=== PATIENT | male | born 1945 | race Caucasian/White ===

== ENCOUNTER 2016-08-28 13:34 | Inpatient (IN) | payer SELFPAY ==
[~2016-08-28] VITALS: Ht 180.3 cm; Wt 74.8 kg
[2016-08-28] MEDS ORDERED: ASPIRIN 81 MG TABLET CHEW ONE (14:20)
[2016-08-28] MEDS ORDERED: ASPIRIN 81 MG TABLET CHEW PO ONE (14:30)
[2016-08-28] MEDS ORDERED: PLEASE ENTER ALLERGIES MC SCH ×2 (14:30)
[2016-08-28] MEDS ORDERED: SODIUM CHLORIDE FLUSH 10ML SYR IVF ONE (14:30)
[2016-08-28 14:45] LABS: ASPARTATE AMINO TRANSFERASE 29 U/L (15-37); BLOOD UREA NITROGEN 33 mg/dL (7-18)
[2016-08-28 14:51] LABS: IS PT STATUS REG ER OR PRE ER? YES
[2016-08-28 15:26] LABS: PATH.CAST-FLAG NOT PRESENT; SPERM-FLAG NOT PRESENT; SRC-FLAG NOT PRESENT; XTAL-FLAG NOT PRESENT; YLC-FLAG NOT PRESENT
[2016-08-28] MEDS ORDERED: SODIUM CHLORIDE 0.9% 1,000 ML IV SCH ×4 (15:30→17:01)
[2016-08-28] MEDS ORDERED: LISI2.5T PO (16:34)
[2016-08-28] MEDS ORDERED: HYDR12.53 PO (16:34)
[2016-08-28 17:20] LABS: BLOOD UREA NITROGEN 34 mg/dL (7-18)
[2016-08-28] MEDS ORDERED: DOCUSATE 100 MG CAPSULE PO PRN (17:30)
[2016-08-28] MEDS ORDERED: ONDANSETRON 2MG/ML, 2ML IVPush PRN (17:30)
[2016-08-28] MEDS ORDERED: BISACODYL 10 MG SUPP PR PRN (17:30)
[2016-08-28] MEDS ORDERED: POLYETHYLENE GLYCOL 17 GM PACKET PO PRN (17:30)
[2016-08-28] MEDS ORDERED: ACETAMINOPHEN 325 MG TABLET PO PRN (17:30)
[2016-08-28 17:48] VITALS: BP 107/71
[2016-08-28] MEDS ORDERED: POTASSIUM CHLORIDE 20 MEQ TAB.ER.PRT PO ONE ×2 (18:00→21:30)
[2016-08-28 18:02] VITALS: BP 107/71
[2016-08-28 20:00] VITALS: BP_SYST 69; BP_SYST 72; BP_DIAS 44; BP_DIAS 48
[2016-08-28 20:26] LABS: POTASSIUM,URINE RANDOM 15 mmol/L
[2016-08-28] MEDS ORDERED: SODIUM CHLORIDE 0.9% 500 ML IV ONE (21:00)
[2016-08-28] MEDS ORDERED: HEPARIN 5,000 UNITS/ML, 1ML IV ONE (21:00)
[2016-08-28 21:10] LABS: BLOOD UREA NITROGEN 39 mg/dL (7-18)
[2016-08-28] MEDS ORDERED: POTASSIUM CHLORIDE 20 MEQ in SODIUM CHLORIDE 0.9% 250 ML IV ONE (22:00)
[2016-08-28] MEDS: HEPARIN 25,000 UNITS/500ML PMX 500 ML IV PRN (23:40)
[2016-08-29] VITALS (8 sets, daily range): BP systolic 69–120; BP diastolic 40–73
[2016-08-29] MEDS: SODIUM CHLORIDE 0.9% 1,000 ML IV SCH ×2 (03:24→12:06)
[2016-08-29 06:24] LABS: BLOOD UREA NITROGEN 36 mg/dL (7-18)
[2016-08-29] MEDS ORDERED: POTASSIUM CHLORIDE 20 MEQ TAB.ER.PRT PO ONE (07:00)
[2016-08-29] MEDS ORDERED: MAGNESIUM SULFATE PMX 2GM/50ML 50 ML IV ONE (07:00)
[2016-08-29] MEDS: HEPARIN 5,000 UNITS/ML, 1ML IV PRN ×2 (08:07→22:17)
[2016-08-29 14:32] LABS: BLOOD UREA NITROGEN 29 mg/dL (7-18)
[2016-08-29] MEDS: POTASSIUM CHLORIDE 20 MEQ in SODIUM CHLORIDE 0.9% 1,000 ML IV SCH (17:51)
[2016-08-29 21:53] LABS: BLOOD UREA NITROGEN 24 mg/dL (7-18)
[2016-08-29] MEDS: HEPARIN 25,000 UNITS/500ML PMX 500 ML IV PRN (22:18)
[2016-08-30] MEDS: POTASSIUM CHLORIDE 20 MEQ in SODIUM CHLORIDE 0.9% 1,000 ML IV SCH ×3 (01:04→18:05)
[2016-08-30 01:26] VITALS: BP 129/78
[2016-08-30 05:48] LABS: BLOOD UREA NITROGEN 19 mg/dL (7-18)
[2016-08-30 07:59] VITALS: BP 127/79
[2016-08-30 08:02] VITALS: BP 129/83
[2016-08-30] MEDS ORDERED: OMNIPAQUE 350 MG/ML, 100ML BOTTLE ONE (10:06)
[2016-08-30 13:18] VITALS: BP 111/60
[2016-08-30 13:28] LABS: BLOOD UREA NITROGEN 15 mg/dL (7-18)
[2016-08-30] MEDS ORDERED: ENOXAPARIN 40 MG/0.4 ML SQ SCH (17:00)
[2016-08-30 19:13] VITALS: BP 138/83
[2016-08-31] MEDS: POTASSIUM CHLORIDE 20 MEQ in SODIUM CHLORIDE 0.9% 1,000 ML IV SCH ×2 (00:42→06:47)
[2016-08-31 01:11] VITALS: BP 153/83
[2016-08-31 06:54] VITALS: BP 141/87
[2016-08-31] MEDS ORDERED: SODIUM CHLORIDE 0.9% 1,000 ML IV SCH (13:00)
[2016-08-31] MEDS ORDERED: LISI-170 PO (13:20)
== END 2016-08-31 14:45 | disposition home or self-care (01) | DRG 640 ==
LOC: ED 14:17 → EDIP 15:51 → 4WST 17:45 → DCLOUNGE 08-31 14:05
DX: E86.1 Hypovolemia (principal); N17.0 Acute kidney failure with tubular necrosis; G90.8 Other disorders of autonomic nervous system; E87.1 Hypo-osmolality and hyponatremia; E87.3 Alkalosis; I11.9 Hypertensive heart disease without heart failure; F10.20 Alcohol dependence, uncomplicated; E87.8 Other disorders of electrolyte and fluid balance, not elsewhere classified; T50.2X5A Adverse effect of carbonic-anhydrase inhibitors, benzothiadiazides and other diuretics, initial encounter; Z80.8 Family history of malignant neoplasm of other organs or systems; Z83.3 Family history of diabetes mellitus; Z87.891 Personal history of nicotine dependence; J44.9 Chronic obstructive pulmonary disease, unspecified; Z79.899 Other long term (current) drug therapy
CPT/HCPCS: 36415; 70450; 71010; 71275; 74220; 76770; 78582; 80048; 80053; 81001; 81003; 82436; 82533; 82550; 82570; 83735; 83930; 83935; 84100; 84133; 84295; 84300; 84443; 84484; 84550; 85025; 85379; 85520; 85610; 85730; 93005; 93306; 93970; 99291; J1644; J1650; J3480; Q9967; A9540; A9558; C9898; J3475; J7030; J7040; J7050

== ENCOUNTER 2017-09-28 16:25 | Inpatient (IN) | payer MEDICAID, MEDICARE, OTHER ==
[~2017-09-28] VITALS: Ht 182.9 cm; Wt 77.0 kg
[~2017-09-28 16:25] MED LIST: HYDR12.53 PO; LISI-170 PO; LISI2.5T PO
[2017-09-28] MEDS ORDERED: SODIUM CHLORIDE 0.9% 1,000 ML IV ONE (16:33)
[2017-09-28] MEDS ORDERED: DIPH,PERTUSS(ACELL),TET VAC/PF 0.5 ML IM-VACC ONE ×2 (17:00→18:05)
[2017-09-28] MEDS ORDERED: SODIUM CHLORIDE FLUSH 10ML SYR IVF ONE (17:00)
[2017-09-28] MEDS ORDERED: CEFAZOLIN PMX 1GM/50ML 50 ML IVPB ONE (17:00)
[2017-09-28] MEDS ORDERED: PLEASE ENTER HEIGHT AND WEIGHT MC SCH (17:00)
[2017-09-28 17:02] LABS: BASOPHILS # (AUTO) 0.01 x10^3/uL (0-0.1); BASOPHILS % (AUTO) 0 % (0-1); EOSINOPHILS # (AUTO) 0.13 x10^3/uL (0-0.4); EOSINOPHILS % (AUTO) 1 % (1-7); LYMPHOCYTES # (AUTO) 0.57 x10^3/uL (1-3.4); LYMPHOCYTES % (AUTO) 6 % (22-44); MD NO; MEAN CORPUSCULAR HEMOGLOBIN 33.8 pg (27.5-34.5); MEAN CORPUSCULAR HGB CONC 34.9 g/dL (33.2-36.2); MEAN CORPUSCULAR VOLUME 96.8 fL (81-97); MEAN PLATELET VOLUME 5.5 fL (7.4-10.4); MONOCYTES # (AUTO) 0.34 x10^3/uL (0.2-0.8); MONOCYTES % (AUTO) 4 % (2-9); NEUTROPHILS # (AUTO) 8.42 x10^3/uL (1.8-6.8); NEUTROPHILS % (AUTO) 89 % (42-75); PLATELET COUNT 210 x10^3/uL (130-400); RED BLOOD COUNT 3.28 x10^6/uL (4.38-5.82); RED CELL DISTRIBUTION WIDTH 12.9 % (9.4-14.8)
[2017-09-28 17:12] LABS: ALANINE AMINOTRANSFERASE 19 U/L (12-78); ALBUMIN 3.3 g/dL (3.4-5.0); CALCIUM 8.1 mg/dL (8.5-10.1); CHLORIDE 78 mmol/L (98-107)
[2017-09-28 17:15] LABS: ALKALINE PHOSPHATASE 57 U/L (45-117); BILIRUBIN,TOTAL 0.8 mg/dL (0.2-1.0); CREATININE 0.94 mg/dL (0.7-1.3); TOTAL PROTEIN 5.7 g/dL (6.4-8.2)
[2017-09-28 17:24] LABS: ANION GAP 15 mmol/L (5-15)
[2017-09-28] MEDS ORDERED: LIDOCAINE-MPF 1%, 5ML ONE ×3 (17:59)
[2017-09-28] MEDS ORDERED: POTASSIUM CHLORIDE 20 MEQ TAB.ER.PRT PO ONE (18:00)
[2017-09-28] MEDS ORDERED: MAGNESIUM SULFATE PMX 2GM/50ML 50 ML IV ONE ×2 (18:00→20:00)
[2017-09-28] MEDS ORDERED: LIDOCAINE 2%, 20ML SQ ONE (18:00)
[2017-09-28] MEDS ORDERED: POTASSIUM CHLORIDE 20 MEQ TAB.ER.PRT ONE (18:04)
[2017-09-28] MEDS ORDERED: CEFAZOLIN PMX 1GM/50ML 50 ML ONE (18:04)
[2017-09-28] MEDS ORDERED: HYDR12.53 PO (18:26)
[2017-09-28] MEDS ORDERED: POLYETHYLENE GLYCOL 17 GM PACKET PO PRN (18:30)
[2017-09-28] MEDS: NICOTINE 14MG/24 HR PATCH.TD24 TD SCH (18:30)
[2017-09-28] MEDS ORDERED: ONDANSETRON 2MG/ML, 2ML IVPush PRN (18:30)
[2017-09-28] MEDS ORDERED: ACETAMINOPHEN 325 MG TABLET PO PRN (18:30)
[2017-09-28] MEDS ORDERED: SODIUM CHLORIDE 0.9% 1,000 ML IV SCH (18:30)
[2017-09-28] MEDS ORDERED: BISACODYL 10 MG SUPP PR PRN (18:30)
[2017-09-28] MEDS ORDERED: ASPIRIN 325 MG TABLET PO ONE (18:30)
[2017-09-28 21:12] LABS: AMPHETAMINE SCREEN, URINE Negative (Negative); BARBITURATE SCREEN, URINE Negative (Negative); BENZODIAZEPINE SCREEN, URINE Negative (Negative); CANNABINOID SCREEN, URINE Negative (Negative); COCAINE SCREEN, URINE Negative (Negative); METHADONE SCREEN, URINE Negative (Negative); OPIATE SCREEN, URINE Negative (Negative)
[2017-09-28 21:32] LABS: ANION GAP 9 mmol/L (5-15); CALCIUM 8.4 mg/dL (8.5-10.1); CHLORIDE 82 mmol/L (98-107); CREATININE 0.92 mg/dL (0.7-1.3)
[2017-09-28] MEDS: SODIUM CHLORIDE 0.9% 1,000 ML IV SCH (22:17)
[2017-09-28 22:21] VITALS: BP 129/71
[2017-09-29 01:18] LABS: ANION GAP 6 mmol/L (5-15); CALCIUM 8.4 mg/dL (8.5-10.1); CHLORIDE 83 mmol/L (98-107); CREATININE 0.87 mg/dL (0.7-1.3)
[2017-09-29 01:59] VITALS: BP 116/67
[2017-09-29] MEDS: ASPIRIN 81 MG TABLET EC PO SCH (05:14)
[2017-09-29] MEDS: SODIUM CHLORIDE 0.9% 1,000 ML IV SCH ×2 (05:14→15:55)
[2017-09-29 05:39] LABS: BASOPHILS # (AUTO) 0.02 x10^3/uL (0-0.1); BASOPHILS % (AUTO) 0 % (0-1); EOSINOPHILS # (AUTO) 0.28 x10^3/uL (0-0.4); EOSINOPHILS % (AUTO) 5 % (1-7); LYMPHOCYTES # (AUTO) 0.84 x10^3/uL (1-3.4); LYMPHOCYTES % (AUTO) 15 % (22-44); MD NO; MEAN CORPUSCULAR HEMOGLOBIN 33.3 pg (27.5-34.5); MEAN CORPUSCULAR HGB CONC 34.6 g/dL (33.2-36.2); MEAN CORPUSCULAR VOLUME 96.2 fL (81-97); MEAN PLATELET VOLUME 5.9 fL (7.4-10.4); MONOCYTES # (AUTO) 0.44 x10^3/uL (0.2-0.8); MONOCYTES % (AUTO) 8 % (2-9); NEUTROPHILS # (AUTO) 3.94 x10^3/uL (1.8-6.8); NEUTROPHILS % (AUTO) 72 % (42-75); PLATELET COUNT 214 x10^3/uL (130-400); RED BLOOD COUNT 3.51 x10^6/uL (4.38-5.82); RED CELL DISTRIBUTION WIDTH 13.1 % (9.4-14.8)
[2017-09-29 05:47] LABS: ANION GAP 9 mmol/L (5-15); CALCIUM 8.2 mg/dL (8.5-10.1); CHLORIDE 86 mmol/L (98-107)
[2017-09-29 05:52] LABS: ALANINE AMINOTRANSFERASE 20 U/L (12-78); ALKALINE PHOSPHATASE 80 U/L (45-117); BILIRUBIN,TOTAL 0.8 mg/dL (0.2-1.0); CREATININE 0.89 mg/dL (0.7-1.3); TOTAL PROTEIN 5.8 g/dL (6.4-8.2)
[2017-09-29 05:55] LABS: TROPONIN I < 0.015 ng/mL (0.000-0.045)
[2017-09-29 07:34] VITALS: BP 123/75
[2017-09-29] MEDS: LISINOPRIL 20 MG TABLET PO SCH (09:37)
[2017-09-29] MEDS: SENNA/DOCUSATE TABLET PO SCH (09:38)
[2017-09-29 10:10] LABS: CHLORIDE 86 mmol/L (98-107)
[2017-09-29 10:14] LABS: ANION GAP 5 mmol/L (5-15); CALCIUM 8.2 mg/dL (8.5-10.1); CREATININE 0.81 mg/dL (0.7-1.3)
[2017-09-29 10:15] LABS: MICROSCOPIC NOT IND
[2017-09-29 10:16] LABS: CULTURE INDICATED? NO
[2017-09-29 11:08] LABS: OSMOLALITY,URINE 289 mOsm/kg (500-850)
[2017-09-29 11:45] LABS: TROPONIN I < 0.015 ng/mL (0.000-0.045)
[2017-09-29 13:44] VITALS: BP 126/78
[2017-09-29 14:30] LABS: CHLORIDE,URINE RANDOM 68 mmol/L; POTASSIUM,URINE RANDOM 15 mmol/L; SODIUM,URINE RANDOM 54 mmol/L
[2017-09-29] MEDS: FOLIC ACID 1 MG TABLET PO SCH (14:47)
[2017-09-29] MEDS: THIAMINE 100MG TABLET PO SCH (14:47)
[2017-09-29] MEDS: MULTIVIT.W/IRON, MINERALS ORAL SOL PO SCH (14:47)
[2017-09-29 16:13] LABS: ANION GAP 5 mmol/L (5-15); CALCIUM 8.4 mg/dL (8.5-10.1); CHLORIDE 88 mmol/L (98-107); CREATININE 0.78 mg/dL (0.7-1.3)
[2017-09-29] MEDS: NICOTINE 14MG/24 HR PATCH.TD24 TD SCH (18:30)
[2017-09-29 20:00] VITALS: BP 137/65
[2017-09-30 02:00] VITALS: BP 143/79
[2017-09-30] MEDS: SODIUM CHLORIDE 0.9% 1,000 ML IV SCH (04:22)
[2017-09-30] MEDS: ASPIRIN 81 MG TABLET EC PO SCH (04:58)
[2017-09-30 05:21] LABS: BASOPHILS # (AUTO) 0.02 x10^3/uL (0-0.1); BASOPHILS % (AUTO) 0 % (0-1); EOSINOPHILS # (AUTO) 0.42 x10^3/uL (0-0.4); EOSINOPHILS % (AUTO) 7 % (1-7); LYMPHOCYTES # (AUTO) 1.26 x10^3/uL (1-3.4); LYMPHOCYTES % (AUTO) 22 % (22-44); MD NO; MEAN CORPUSCULAR HEMOGLOBIN 33.1 pg (27.5-34.5); MEAN CORPUSCULAR HGB CONC 34.5 g/dL (33.2-36.2); MEAN PLATELET VOLUME 5.8 fL (7.4-10.4); MONOCYTES # (AUTO) 0.42 x10^3/uL (0.2-0.8); MONOCYTES % (AUTO) 7 % (2-9); NEUTROPHILS # (AUTO) 3.74 x10^3/uL (1.8-6.8); NEUTROPHILS % (AUTO) 64 % (42-75); PLATELET COUNT 215 x10^3/uL (130-400); RED BLOOD COUNT 3.15 x10^6/uL (4.38-5.82); RED CELL DISTRIBUTION WIDTH 13.3 % (9.4-14.8)
[2017-09-30 05:33] LABS: ANION GAP 7 mmol/L (5-15); CALCIUM 8.2 mg/dL (8.5-10.1); CHLORIDE 92 mmol/L (98-107)
[2017-09-30 05:34] LABS: CREATININE 0.77 mg/dL (0.7-1.3)
[2017-09-30 07:27] VITALS: BP 150/79
[2017-09-30] MEDS: SENNA/DOCUSATE TABLET PO SCH (09:00)
[2017-09-30] MEDS: THIAMINE 100MG TABLET PO SCH (10:10)
[2017-09-30] MEDS: LISINOPRIL 20 MG TABLET PO SCH (10:10)
[2017-09-30] MEDS: FOLIC ACID 1 MG TABLET PO SCH (10:10)
[2017-09-30] MEDS: MULTIVIT.W/IRON, MINERALS ORAL SOL PO SCH (10:11)
[2017-09-30] MEDS ORDERED: THIA100T67 PO (10:14)
[2017-09-30] MEDS ORDERED: ASPI-621 PO (10:14)
[2017-09-30] MEDS ORDERED: FOLI-17 PO (10:14)
[2017-09-30] MEDS ORDERED: ATOR20TA9 PO (16:16)
== END 2017-09-30 11:40 | disposition home or self-care (01) | DRG 41 ==
LOC: ED 17:34 → EDIP 17:37 → 4WST 19:07 → DCLOUNGE 09-30 11:26
PROVIDERS: ADMIT Internal Medicine; ATTEND Internal Medicine
PROC: 0XQQXZZ Repair Right Middle Finger, External Approach (ICD-10-PCS; principal; 2017-09-28)
PROC: 0XQSXZZ Repair Right Ring Finger, External Approach (ICD-10-PCS; 2017-09-28)
DX: G90.9 Disorder of the autonomic nervous system, unspecified (principal); E87.1 Hypo-osmolality and hyponatremia; E44.1 Mild protein-calorie malnutrition; S61.212A Laceration without foreign body of right middle finger without damage to nail, initial encounter; F17.210 Nicotine dependence, cigarettes, uncomplicated; F10.20 Alcohol dependence, uncomplicated; E83.42 Hypomagnesemia; E86.0 Dehydration; D64.9 Anemia, unspecified; E87.6 Hypokalemia; I10 Essential (primary) hypertension; Z23 Encounter for immunization; S61.214A Laceration without foreign body of right ring finger without damage to nail, initial encounter; W18.39XA Other fall on same level, initial encounter; Y93.89 Activity, other specified; Y92.89 Other specified places as the place of occurrence of the external cause; Y99.8 Other external cause status; Z80.8 Family history of malignant neoplasm of other organs or systems; Z83.3 Family history of diabetes mellitus; Z82.49 Family history of ischemic heart disease and other diseases of the circulatory system; I51.89 Other ill-defined heart diseases; Z68.23 Body mass index [BMI] 23.0-23.9, adult; Z60.2 Problems related to living alone; I95.9 Hypotension, unspecified
CPT/HCPCS: 36415; 70450; 70551; 80048; 80053; 80307; 81003; 82436; 82533; 82550; 83735; 83930; 83935; 84133; 84300; 84484; 85025; 90471; 90715; 93005; 93306; 93880; 96374; 96375; G0378; J0690; J3475; J7030